=== PATIENT | male | born 1960 | race Caucasian/White ===

== ENCOUNTER 2016-07-04 20:00 | Emergency (ER) | payer OTHER ==
[~2016-07-04] VITALS: Ht 180.3 cm; Wt 82.8 kg
[2016-07-04] MEDS ORDERED: AUGMENTIN875 MG PO (22:48)
[2016-07-04 23:34] VITALS: BP 134/77
== END 2016-07-04 23:36 | disposition home or self-care (01) ==
LOC: EXP 20:00 → EME 20:00 → EXP 23:36
DX: S61.522A Laceration with foreign body of left wrist, initial encounter (principal); W54.0XXA Bitten by dog, initial encounter
CPT/HCPCS: 73110; 99281; 99284

== ENCOUNTER 2017-09-22 19:53 | Emergency (ER) | payer OTHER ==
[~2017-09-22] VITALS: Ht 177.8 cm; Wt 85.7 kg
[~2017-09-22 19:53] MED LIST: AUGMENTIN875 MG PO
[2017-09-22 20:31] VITALS: BP 151/81
== END 2017-09-22 20:31 | disposition home or self-care (01) ==
LOC: EME 19:53
DX: Z20.811 Contact with and (suspected) exposure to meningococcus (principal); Z57.8 Occupational exposure to other risk factors
CPT/HCPCS: 99281; 99283

== ENCOUNTER 2017-12-15 12:40 | Observation (INO) | payer OTHER ==
[~2017-12-15] VITALS: Ht 180.3 cm; Wt 85.7 kg
[2017-12-15 13:28] LABS: HEMATOCRIT 42.3 % (38.0-50.0); HEMOGLOBIN 14.3 G/DL (12.5-16.6); MCH 29.4 PG (29.0-34.0); MCHC 33.8 G/DL (30.0-36.0); PLATELET COUNT 166 K/uL (156-360); RBC DIS.WIDTH-CV 12.7 % (11.8-14.6); RBC DIS.WIDTH-SD 40.3 % (39-53); RED BLOOD COUNT 4.86 M/uL (4.00-5.50); WHITE BLOOD COUNT 8.5 K/uL (4.1-10.2)
[2017-12-15 13:31] LABS: CHLORIDE 107 mEq/L (99-109); POTASSIUM 4.4 mEq/L (3.7-5.4); SODIUM 143 mEq/L (136-147)
[2017-12-15 13:33] LABS: GLUCOSE 103 mg/dL (70-99)
[2017-12-15 13:37] LABS: CREATININE 0.9 mg/dL (0.6-1.3); GFR ESTIMATE (CALCULATED) > 59 mL/min/ (58.99-99999)
[2017-12-15 13:38] LABS: UREA NITROGEN (BUN) 10 mg/dL (9-23)
[2017-12-15 13:44] LABS: TROP-I INTERPRETATION NEGATIVE; TROPONIN-I < 0.01 ng/mL (0.0-0.30)
[2017-12-15] MEDS ORDERED: ATORVASTATIN CA40 MG PO (16:39)
[2017-12-15] MEDS ORDERED: GLUCOPHAGE XR750 MG PO (16:40)
[2017-12-15] MEDS ORDERED: LO-DOSE ASPIRIN81 M2 PO (16:42)
[2017-12-15] MEDS ORDERED: COQ1050 MG PO (16:42)
[2017-12-15] MEDS ORDERED: IRON325 M1 PO (16:43)
[2017-12-15] MEDS ORDERED: CRANBERRY 4001 EAC1 PO (16:46)
[2017-12-15] MEDS ORDERED: VITAMIN E100 UNIT PO (16:47)
[2017-12-15] MEDS ORDERED: ASCORBIC ACID100 MG PO (16:48)
[2017-12-15] MEDS ORDERED: VITAMIN D31000 UNI2 PO (17:13)
[2017-12-15] MEDS ORDERED: TURMERIC500 M2 PO (17:13)
[2017-12-15] MEDS ORDERED: VITAMIN B-122000 MC1 PO (17:14)
[2017-12-15] MEDS ORDERED: OMEGA 3 500 SO1 EACH PO (17:15)
[2017-12-15 17:55] VITALS: BP 156/74
[2017-12-15 18:16] LABS: TROP-I INTERPRETATION NEGATIVE; TROPONIN-I < 0.01 ng/mL (0.0-0.30)
[2017-12-15 18:59] VITALS: BP 145/80
[2017-12-16 00:13] VITALS: BP 134/72
[2017-12-16 00:57] LABS: TROP-I INTERPRETATION NEGATIVE; TROPONIN-I < 0.01 ng/mL (0.0-0.30)
[2017-12-16 04:06] VITALS: BP 130/67
[2017-12-16 05:25] LABS: HEMATOCRIT 41.3 % (38.0-50.0); HEMOGLOBIN 13.8 G/DL (12.5-16.6); MCH 29.1 PG (29.0-34.0); MCHC 33.4 G/DL (30.0-36.0); MCV 87.1 FL (86-99); PLATELET COUNT 166 K/uL (156-360); RBC DIS.WIDTH-CV 12.9 % (11.8-14.6); RBC DIS.WIDTH-SD 40.7 % (39-53); RED BLOOD COUNT 4.74 M/uL (4.00-5.50); WHITE BLOOD COUNT 8.3 K/uL (4.1-10.2)
[2017-12-16 05:52] LABS: ALBUMIN 3.8 G/DL (3.2-4.8); ALKALINE PHOSPHATASE 71 IU/L (3-129); ALT (GPT) 21 IU/L (3-49); AST (GOT) 16 IU/L (2-34); CHLORIDE 104 MEQ/L (99-109); CREATININE 0.9 MG/DL (0.6-1.3); GFR ESTIMATE (CALCULATED) > 59 mL/min/ (58.99-99999); GLUCOSE 116 mg/dL (70-99); POTASSIUM 4.2 MEQ/L (3.7-5.4); SODIUM 140 MEQ/L (136-147); TOTAL BILIRUBIN 0.6 MG/DL (0.0-1.0); TOTAL PROTEIN 6.3 G/DL (6.4-8.3); UREA NITROGEN (BUN) 15 mg/dL (9-23)
[2017-12-16 07:25] VITALS: BP 162/77
[2017-12-16 09:23] LABS: TROP-I INTERPRETATION NEGATIVE; TROPONIN-I < 0.01 ng/mL (0.0-0.30)
[2017-12-16 11:08] VITALS: BP 131/72
[2017-12-16 11:56] LABS: HEMOGLOBIN A1c (GLYCOHEMOGLOB) 6.4 % (Below 5.7)
== END 2017-12-16 11:48 | disposition home or self-care (01) ==
LOC: EME 12:40 → 4SOUTH 16:19 → EDOF 16:19 → ENRESERV 16:21 → 4SOUTH 17:51
PROVIDERS: Internal Medicine; Internal Medicine Cardiovascular Disease; Physician Assistant
DX: R07.89 Other chest pain (principal); E11.9 Type 2 diabetes mellitus without complications; E78.5 Hyperlipidemia, unspecified; F17.210 Nicotine dependence, cigarettes, uncomplicated; I10 Essential (primary) hypertension; M19.90 Unspecified osteoarthritis, unspecified site; Z82.49 Family history of ischemic heart disease and other diseases of the circulatory system; Z79.82 Long term (current) use of aspirin; Z79.84 Long term (current) use of oral hypoglycemic drugs
CPT/HCPCS: 71046; 80048; 80053; 82948; 83036; 84484; 85027; 93005; 99281; 99285; G0378; J1650